=== PATIENT | male | born 2000 | race Caucasian/White ===

== ENCOUNTER 2023-01-06 13:11 | Outpatient (CLI) | payer OTHER ==
--- NOTE | 2023-01-07 15:36 | Ultrasound Report ---
PROCEDURE: Testicle INDICATIONS: TESTICULAR MASS TECHNIQUE: Real-time scanning was performed of the scrotum and testicles, with image documentation. Color and p ulse Doppler interrogation was performed of both testicles. COMPARISON: None. FINDINGS: Right: Testicle is normal in size at 4.2 x 2.0 x 3.0 cm, and homogenous in echotexture. Epididymis is normal in overall size and morphology. No hydrocele. No varicoceles. Overlying scrotal skin is n ormal in thickness. Left: Testicle is normal in size at 3.7 x 1.9 x 2.8 cm, and homogeneous in echotexture. Epididymis is normal in overall size and morphology. No hydrocele. No varicoceles. A 4 mm echogenic focus is n oted within the left scrotum which may represent a small scrotolith. Overlying scrotal skin is normal in thickness. Doppler: Color and pulse Doppler demonstrate normal and symmetric arterial flow in both testicles. IMPRESSION: 1. 4 mm echogenic focus within the left scrotum. It is unclear if this is what is palpated by the pat ient. Findings suggest the presence of a small scrotolith. 2. Otherwise unremarkable testicular ultrasound. Reviewed by: Pamela Enriquez MD on 01/07/2023 3:35 PM PST Approved by: Pamela Enriquez MD on 01/07/2023 3:35 PM PST Station ID: [id number]
== END 2023-01-06 13:12 | disposition home or self-care (01) ==
LOC: DI 13:11
PROVIDERS: ATTEND Family Medicine
DX: N50.9 Disorder of male genital organs, unspecified (principal)